=== PATIENT | male | born 1955 | race Caucasian/White ===

== ENCOUNTER 2017-09-02 15:36 | Emergency (ER) | payer OTHER ==
--- OUTSIDE RECORDS SUMMARY | 2017-09-02 17:26 | XMS REPORT ---
:1955 External Reference #:[id number] Author Organization [facility] 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 Arpan Scott DO Primary Care Physician Unavailable Payers Type Date Identification Numbers Payment Provider Subscriber Commercial Policy Number: [id number] [employer] Mahin Bah PayID: [id number] [address] [address] [place] [address] Commercial Expires: 2016 Policy Number: [id number] Rajat Bah PayID: [id number] [address] [address] [place] [address] Problems Date Description Provider Status Onset: 09/07/2011 Sinus node dysfunction Daniel Nelson M.D., Active FACC Onset: 09/07/2011 Cardiac pacemaker in situ Daniel Nelson M.D., Active FACC Onset: 09/07/2011 Electrocardiogram abnormal Daniel Nelson M.D., Active FACC Onset: 08/27/2012 Hyperlipidemia Daniel Nelson M.D., Active FACC Onset: 08/27/2012 Type 2 diabetes mellitus Daniel Nelson M.D., Active FACC Onset: 09/04/2013 Benign essential hypertension Daniel Nelson M.D., Active FACC Onset: 08/06/2015 Essential hypertension Heather Tony Gomez, Active MSN, [employer] Onset: 10/28/2015 Staphylococcal infectious disease aVlery Flores M.D. Active Onset: 10/28/2015 Infected pacemaker Valery Flores M.D. Active Onset: 10/28/2015 Continuous chronic alcoholism Valery Flores M.D. Active Onset: 11/10/2015 Diarrhea Valery Flores M.D. Active Onset: 11/24/2015 Pneumonia Valery Flores M.D. Active Onset: 11/24/2015 Dyspnea Valery Flores M.D. Active Onset: 10/21/2016 Syncope and collapse Daniel Nelson M.D., Active FACC Onset: 02/09/2017 Mature arteriovenous graft Daniel Nelson M.D., Active FACC Family History Date Family Member(s) Problem(s) Comments Father Cancer Prostate Onset: (age 63 Years) Mother Myocardial Infarction Social History Type Date Description Comments Lives With Lulu. They have been for 26 years and wit 2 children btween both of them and 6 grand children. 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 Independent with all ADL's Cigarette Use Former Cigarette Smoker Cigarette Use 04/20/1999 Quit ETOH Use Consumes 1 six pack of beer per day ETOH Use Uses Alcohol Daily Smoking Patient is a former smoker Daily Caffeine Patient consumes minimal amounts of caffeine Allergies, Adverse Reactions, Alerts Date Description Reaction Status Severity Comments 10/08/2008 NKDA active Medications Medication Date Status Form Strength Qnty SIG Indications Ordering Provider Omeprazole / Active Capsules 40mg 1 po qd Unknown 0000 DR Allopurinol / Active Tablets 100mg 30tabs 1 po bid Unknown 0000 Potassium / Active Tablets ER 20Meq take 1 Unknown Chloride ER 0000 tablet by mouth once daily Carvedilol / Active Tablets 12.5mg 1 po bid Unknown 0000 Lisinopril / Active Tablets 20mg 1 po daily Unknown 0000 Ibuprofen / Active Tablets 800mg prn Unknown 0000 Glipizide / Active Tablets 5mg 1 po daily Unknown 0000 Levaquin 11/23/ Hx Tablets 750mg 7tabs 1 by mouth J18.9 Valery 2016 every day Mezu, M.D. for 7 days Mucinex 11/23/ Hx Tablets ER 600mg 20tabs one by mouth J18.9 Valery 2016 12HR twice a day. Guille Flores generic ok. PICC Line 10/27/ Hx Picc line T82.7xxA Valery Insertion Per 2016 insertion Guille Flores Protocol per protocol Daptomycin Hx 6WeekS Infuse T82.7xxA Valery 8MG/KG IV 2016 upply 8mg/kg IV q Guille Flores Every 24 24 hours x 6 Hours weeks Weekly labs: cbc, cmp, crp and cpk while on antibiotics. Rifampin Hx Capsules 300mg 42caps take 2 cap T82.7xxA Valery 2016 by mouth Guille Flores daily Referral For Hx Picc line T82.7xxA Valery PICC Line 2016 care per Guille Flores Care Per protocol. Protocol Home care agency referral. Skilled Hx Evaluation T82.7xxA Valery Nursing 2016 inaddition Guille Flores Evaluation to 3 visits then as needed. Start 10/28/2014 B95.7 Aspirin Ec 08/10/[address] 81mg 30tabs 1 po qd Heather CHINEDU James, [employer] Lovastatin - Hx Tablets 20mg 1 po qd Heather 10/27/2015 CHINEDU James, [employer] Nifedical XL Hx Tablets ER 30mg po qd Heather 24HR CHINEDU James, [employer] [facility] Lisinopril Hx Tablets 40mg 1 po qd Heather Tony Gomez, MSN, [employer] Omeprazole Hx Capsules DR 20mg 1 po qd Heather CHINEDU James, [employer] Ibuprofen Hx Tablets 800mg 3 tab po Heather qd prn Tony Gomez, CHIN[employer], [employer] Aspirin Ec Hx Tablets DR 81mg 1 po qd Heatherdeann Gomez, CHIN[employer]U, [employer] Carvedilol Hx Tablets 6.25mg 180tabs 1 po bid [facility] M.D., [facility] Colchicine Hx Tablets 0.6mg 30tabs 1 po qd Daniel Nelson M.D., [facility] Glipizide Hx Tablets 5mg 1 po qd Unknown Carvedilol Hx Tablets 12.5mg po bid Unknown Glipizide ER Hx Tablets ER 2.5mg 1 po qd Unknown 24HR Folic Acid Hx Tablets 1mg 90tabs 1 po qd Unknown Methotrexate Hx Tablets 2.5mg 3 tabs po Unknown qweek Humira Pen Hx PNKT 40mg/0.8 inject qo Unknown ML week Ibuprofen - Hx Tablets 800mg 1 tablet Unknown 10/28/2015 by tid Acetaminophen Hx Unknown Folic Acid Hx Tablets 1mg take 1 Unknown tablet by mouth once daily Magnesium Hx Capsules 500mg 1 by mouth Unknown daily Vitamin B12 Hx 3000mcg 1 po daily Unknown Immunizations CPT Code Status Date Vaccine Lot # 60432 Given 11/10/2015 Influenza Virus Vaccine Split Virus Use For Individual 3Yr Older Vital Signs Date Vital Result Comment 08/07/2017 BP Systolic Sitting Left Arm 126 mmHg BP Diastolic Sitting Left Arm 70 mmHg Heart Rate 76 /min Respiratory Rate 18 /min Height 70 inches 5'10" Weight 181.00 lb BMI (Body Mass Index) 26.0 kg/m2 BSA (Body Surface Area) 2.00 m2 Bryant body weight in kilograms 75 O2 % BldC Oximetry 97 % Room air 02/09/2017 BP Systolic Sitting Right Arm 130 mmHg BP Diastolic Sitting Right Arm 82 mmHg Heart Rate 79 /min Respiratory Rate 14 /min Height 70 inches 5'10" Weight 185.00 lb BMI (Body Mass Index) 26.5 kg/m2 BSA (Body Surface Area) 2.02 m2 Bryant body weight in kilograms 75 10/21/2016 BP Systolic Sitting Left Arm 98 mmHg BP Diastolic Sitting Left Arm 58 mmHg Heart Rate 70 /min Respiratory Rate 16 /min Height 70 inches 5'10" Weight 182.00 lb BMI (Body Mass Index) 26.1 kg/m2 BSA (Body Surface Area) 2.01 m2 Bryant body weight in kilograms 75 08/12/2016 BP Systolic Sitting Left Arm 112 mmHg BP Diastolic Sitting Left Arm 66 mmHg Heart Rate 73 /min Respiratory Rate 16 /min Height 70 inches 5'10" Weight 178.00 lb BMI (Body Mass Index) 25.5 kg/m2 BSA (Body Surface Area) 1.99 m2 Bryant body weight in kilograms 75 01/28/2016 BP Systolic Sitting Right Arm 110 mmHg BP Diastolic Sitting Right Arm 72 mmHg Heart Rate 76 /min Respiratory Rate 16 /min Height 70 inches 5'10" Weight 170.00 lb BMI (Body Mass Index) 24.4 kg/m2 BSA (Body Surface Area) 1.95 m2 01/18/2016 BP Systolic Sitting Left Arm 133 mmHg BP Diastolic Sitting Left Arm 75 mmHg Body Temperature 97.8 F Heart Rate 88 /min Height 70 inches 5'10" Weight 171.00 lb BMI (Body Mass Index) 24.5 kg/m2 BSA (Body Surface Area) 1.95 m2 O2 % BldC Oximetry 97 % ra 12/24/2015 BP Systolic Sitting Left Arm 122 mmHg BP Diastolic Sitting Left Arm 64 mmHg Heart Rate 88 /min Respiratory Rate 12 /min Height 70 inches 5'10" Weight 166.00 lb BMI (Body Mass Index) 23.8 kg/m2 BSA (Body Surface Area) 1.93 m2 12/21/2015 BP Systolic Sitting Right Arm 103 mmHg Machine BP Diastolic Sitting Right Arm 69 mmHg Machine Body Temperature 99.1 F Heart Rate 95 /min Height 70 inches 5'10" Weight 165.00 lb BMI (Body Mass Index) 23.7 kg/m2 BSA (Body Surface Area) 1.92 m2 O2 % BldC Oximetry 97 % Ra 11/24/2015 BP Systolic Sitting Right Arm 124 mmHg BP Diastolic Sitting Right Arm 70 mmHg Body Temperature 99.0 F Heart Rate 96 /min Height 70 inches 5'10" Weight 170.00 lb BMI (Body Mass Index) 24.4 kg/m2 BSA (Body Surface Area) 1.95 m2 O2 % BldC Oximetry 95 % ra 11/09/2015 BP Systolic 122 mmHg BP Diastolic 68 mmHg Heart Rate 86 /min Height 70 inches 5'10" Weight 176.00 lb BMI (Body Mass Index) 25.3 kg/m2 BSA (Body Surface Area) 1.98 m2 O2 % BldC Oximetry 96 % ra 10/28/2015 BP Systolic Sitting Right Arm 128 mmHg BP Diastolic Sitting Right Arm 78 mmHg Body Temperature 97.7 F Heart Rate 66 /min Weight 177.00 lb O2 % BldC Oximetry 97 % ra 09/24/2015 BP Systolic Sitting Left Arm 110 mmHg BP Diastolic Sitting Left Arm 70 mmHg Body Temperature 97.7 F Heart Rate 75 /min Height 70 inches 5'10" Weight 178.00 lb BMI (Body Mass Index) 25.5 kg/m2 BSA (Body Surface Area) 1.99 m2 Bryant body weight in kilograms 75 08/06/2015 BP Systolic Sitting Right Arm 128 mmHg BP Diastolic Sitting Right Arm 80 mmHg Heart Rate 61 /min Height 70 inches 5'10" Weight 178.00 lb BMI (Body Mass Index) 25.5 kg/m2 BSA (Body Surface Area) 1.99 m2 Bryant body weight in kilograms 75 09/18/2014 BP Systolic Sitting Right Arm 130 mmHg BP Diastolic Sitting Right Arm 80 mmHg Heart Rate 70 /min Respiratory Rate 16 /min Height 70 inches 5'10" Weight 178.00 lb BMI (Body Mass Index) 25.5 kg/m2 BSA (Body Surface Area) 1.99 m2 09/04/2013 BP Systolic Sitting Left Arm 108 mmHg BP Diastolic Sitting Left Arm 58 mmHg Heart Rate 76 /min Respiratory Rate 16 /min Height 70 inches 5'10" Weight 164.00 lb BMI (Body Mass Index) 23.5 kg/m2 BSA (Body Surface Area) 1.92 m2 08/27/2012 BP Systolic Sitting Right Arm 124 mmHg BP Diastolic Sitting Right Arm 60 mmHg Heart Rate 76 /min Respiratory Rate 16 /min Height 70 inches 5'10" Weight 184.00 lb BMI (Body Mass Index) 26.4 kg/m2 BSA (Body Surface Area) 2.01 m2 09/07/2011 BP Systolic Sitting Left Arm 126 mmHg BP Diastolic Sitting Left Arm 72 mmHg Heart Rate 66 /min Respiratory Rate 14 /min Height 70 inches 5'10" Weight 179.00 lb BMI (Body Mass Index) 25.7 kg/m2 08/10/2010 BP Systolic Sitting Right Arm 116 mmHg BP Diastolic Sitting Right Arm 64 mmHg Heart Rate 74 /min Regular Respiratory Rate 12 /min Height 70 inches 5'10" Weight 187.00 lb BMI (Body Mass Index) 26.8 kg/m2 07/30/2009 Heart Rate 76 /min Respiratory Rate 16 /min Weight 190.00 lb 10/08/2008 Heart Rate 74 /min Regular Respiratory Rate 16 /min Weight 187.00 lb Results Test Date Test Result H/L Range Note Serum sodium 01/27/2017 Serum sodium 135 Low 136-145 measurement measurement Serum or plasma urea 01/27/2017 Serum or plasma urea 12 7-18 nitrogen measurement nitrogen measurement (mass/vo (mass/volume) Serum or plasma glucose 01/27/2017 Serum or plasma 166 High 74-106 measurement glucose measurement (mass/volume) (mass/volume) Serum or plasma 01/27/2017 Serum or plasma 1.4 High 0.6-1.3 creatinine measurement creatinine measurement (mass/volum (mass/volume) Serum or plasma calcium 01/27/2017 Serum or plasma 8.6 8.5-10.1 measurement calcium measurement (mass/volume) (mass/volume) Serum carbon dioxide 01/27/2017 Serum carbon dioxide 27 21-32 measurement measurement Potassium SerPl-sCnc 01/27/2017 Potassium SerPl-sCnc 4.7 3.5-5.1 GFR/Bsa pred.non black 01/27/2017 GFR/Bsa pred.non black 54 >60 SerPl MDRD-ArVRat SerPl MDRD-ArVRat Chloride SerPl-sCnc 01/27/2017 Chloride SerPl-sCnc 103 98-107 BUN/Creat SerPl 01/27/2017 BUN/Creat SerPl 8.5 Anion Gap SerPl-sCnc 01/27/2017 Anion Gap SerPl-sCnc 5 Low 8-16 Basic Metabolic Panel 01/27/2017 Glucose 166 mg/dL High 74-106 1 BUN 12 mg/dL 7-18 1 Creatinine 1.4 mg/dL High 0.6-1.3 1 Glom Filtration Rate, Estimate 54 mL/min >60 1 If >60 mL/min >60 1, 2 BUN/Creat 8.5 ratio 1 Sodium 135 mmol/L Low 136-145 1 Potassium 4.7 mmol/L 3.5-5.1 1 Chloride 103 mmol/L 98-107 1 Carbon Dioxide 27 mmol/L 21-32 1 Anion Gap 5 mEq/L Low 8-16 1 Calcium 8.6 mg/dL 8.5-10.1 1 Capillary blood glucose 01/27/2017 Capillary blood glucose 177 High 70- 110 measurement by measurement by glucometer glucometer (mass/volume) Blood hemoglobin 01/26/2017 Blood hemoglobin 12.0 Low 12.8-17.0 measurement measurement (mass/volume) (mass/volume) Blood monocytes 01/26/2017 Blood monocytes automated 0.57 0.0-0.8 automated count count (number/volume) (number/volume) Eosinophil/leuk NFr Bld 01/26/2017 Eosinophil/leuk NFr Bld 6.5 0.0-6.6 Auto Auto Lymphocytes/leuk NFr 01/26/2017 Lymphocytes/leuk NFr Bld 18.6 Low 20.0- 42.0 Bld Auto Auto Monocytes/leuk NFr Bld 01/26/2017 Monocytes/leuk NFr Bld 11.5 High 0.0- 10.0 Auto Auto Neutrophils # Bld Auto 01/26/2017 Neutrophils # Bld Auto 3.10 1.8-7.0 Neutrophils/leuk NFr 01/26/2017 Neutrophils/leuk NFr Bld 62.6 33.0-73.0 Bld Auto Auto RDW RBC Auto 01/26/2017 RDW RBC Auto 46.1 36-51 RDW RBC Auto-Rto 01/26/2017 RDW RBC Auto-Rto 13.0 11.6-15.8 WBC # Bld Auto 01/26/2017 WBC # Bld Auto 5.0 3.4-10.5 CBS W/Automated Diff 01/26/2017 White Blood Count 5.0 K/uL 3.4-10.5 3 Red Blood Count 3.47 M/uL Low 4.20-5.80 3 Hemoglobin 12.0 gm/dL Low 12.8-17.0 3 Hematocrit 35.0 % Low 38.0-48.0 3 Mean Cell Volume 100.9 fl High 80.0-96.0 3 Mean Corpuscular HGB 34.6 pg High 27.0-33.0 3 Mean Corpuscular HGB Conc 34.3 g/dL 31.7-36.0 3 Platelet Count 86 K/uL Low 155-360 3, 4 Red Cell Distri Width SD 46.1 fl 36-51 3 Red Cell Distri Width %CV 13.0 % 11.6-15.8 3 Mean Platelet Volume 9.5 fL 6.6-10.6 3 Neut% 62.6 % 33.0-73.0 3 Lymph % 18.6 % Low 20.0-42.0 3 [place] % 11.5 % High 0.0-10.0 3 Eo% 6.5 % 0.0-6.6 3 Bas% 0.8 % 0.0-1.1 3 Neut# 3.10 K/uL 1.8-7.0 3 Lymph # 0.92 K/uL Low 1.0-4.0 3 [place] # 0.57 K/uL 0.0-0.8 3 Eos # 0.32 K/uL 0.0-0.5 3 Baso # 0.04 K/uL 0.0-0.1 3 Basic Metabolic Panel 01/26/2017 Glucose 133 mg/dL High 74-106 3 BUN 10 mg/dL 7-18 3 Creatinine 1.2 mg/dL 0.6-1.3 3 Glom Filtration Rate, Estimate >60 mL/min >60 3 If >60 mL/min >60 3, 5 BUN/Creat 8.3 ratio 3 Sodium 136 mmol/L 136-145 3 Potassium 4.1 mmol/L 3.5-5.1 3 Chloride 105 mmol/L 98-107 3 Carbon Dioxide 23 mmol/L 21-32 3 Anion Gap 8 mEq/L 8-16 3 Calcium 8.5 mg/dL 8.5-10.1 3 Automated blood basophil 01/26/2017 Automated blood 0.04 0.0-0.1 count (count/volume) basophil count (count/volume) Automated blood 01/26/2017 Automated blood 0.32 0.0-0.5 eosinophil count eosinophil count Automated blood 01/26/2017 Automated blood 35.0 Low 38.0-48.0 hematocrit (volume hematocrit (volume fraction) fraction) Automated blood 01/26/2017 Automated blood 0.92 Low 1.0-4.0 lymphocyte count lymphocyte count (number/volume) (number/volume) Automated blood platelet 01/26/2017 Automated blood 86 Low 155-360 count platelet count Automated blood platelet 01/26/2017 Automated blood 9.5 6.6-10.6 mean volume measurement platelet mean volume measurement Automated erythrocyte 01/26/2017 Automated erythrocyte 34.6 High 27.0- 33.0 mean corpuscular mean corpuscular hemoglobin hemoglobin (mass per erythrocyte) Automated erythrocyte 01/26/2017 Automated erythrocyte 34.3 31.7-36.0 mean corpuscular mean corpuscular hemoglobin hemoglobin concentration measurement (mass/volume) Automated erythrocyte 01/26/2017 Automated erythrocyte 100.9 High 80.0- 96.0 mean corpuscular volume mean corpuscular volume Basophils/leuk NFr Bld 01/26/2017 Basophils/leuk NFr Bld 0.8 0.0-1.1 Auto Auto Blood erythrocytes 01/26/2017 Blood erythrocytes 3.47 Low 4.20-5.80 automated count automated count (number/volume) (number/volume) Unloinc 01/25/2017 Unloinc . Serum or plasma total 01/25/2017 Serum or plasma total 1.0 0.2-1.0 bilirubin measurement bilirubin measurement (mass/ (mass/volume) Serum or plasma protein 01/25/2017 Serum or plasma protein 8.1 6.4-8.2 measurement measurement (mass/volume) (mass/volume) Serum or plasma ethanol 01/25/2017 Serum or plasma ethanol 4.0 measurement measurement (mass/volume) (mass/volume) Serum or plasma creatine 01/25/2017 Serum or plasma 273 39-308 kinase measurement creatine kinase (enzym measurement (enzymatic activity/volume) Serum or plasma 01/25/2017 Serum or plasma 55 High 15-37 aspartate aspartate aminotransferase measure aminotransferase measurement (enzymatic activity/volume) Serum or plasma alkaline 01/25/2017 Serum or plasma 94 45-117 phosphatase measurement alkaline phosphatase ( measurement (enzymatic activity/volume) Serum or plasma albumin 01/25/2017 Serum or plasma albumin 3.6 3.4-5.0 measurement measurement (mass/volume) (mass/volume) Prothrombin time (PT) in 01/25/2017 Prothrombin time (PT) 14.3 12.0-14.4 platelet poor plasma in platelet poor plasma Platelet poor plasma 01/25/2017 Platelet poor plasma 1.1 international normalized international rati normalized ratio (Inr) by coagulation assay (relative time) Globulin Ser Calc-mCnc 01/25/2017 Globulin Ser Calc-mCnc 4.5 High 1.9-4.3 Albumin/Glob SerPl 01/25/2017 Albumin/Glob SerPl 0.8 Activated partial 01/25/2017 Activated partial 27.3 23.4-35.0 thromboplastin time thromboplastin time (aPTT) in pl (aPTT) in platelet poor plasma by coagulation assay Alt SerPl-cCnc 01/25/2017 Alt SerPl-cCnc 43 12-78 Lymphocytes [#/volume] 09/08/2016 Lymphocytes [#/volume] 1.19 1.0-4.0 in Blood by Automated in Blood by Automated count count Lymphocytes/leuk NFr Bld 09/08/2016 Lymphocytes/leuk NFr 16.1 Low 20.0- 42.0 Auto Bld Auto MCH RBC Qn Auto 09/08/2016 MCH RBC Qn Auto 34.1 High 27.0-33.0 MCHC RBC Auto-mCnc 09/08/2016 MCHC RBC Auto-mCnc 34.6 31.7-36.0 MCV RBC Auto 09/08/2016 MCV RBC Auto 98.6 High 80.0-96.0 Monocytes # Bld Auto 09/08/2016 Monocytes # Bld Auto 0.68 0.0-0.8 Monocytes/leuk NFr Bld 09/08/2016 Monocytes/leuk NFr Bld 9.2 0.0-10.0 Auto Auto Neutrophils # Bld Auto 09/08/2016 Neutrophils # Bld Auto 5.14 1.8-7.0 Neutrophils/leuk NFr Bld 09/08/2016 Neutrophils/leuk NFr 69.6 33.0-73.0 Auto Bld Auto PMV Bld Auto 09/08/2016 PMV Bld Auto 9.8 6.6-10.6 Platelets [#/volume] in 09/08/2016 Platelets [#/volume] in 89 Low 150-400 Blood by Automated count Blood by Automated count Potassium SerPl-sCnc 09/08/2016 Potassium SerPl-sCnc 4.0 3.5-5.1 Prot SerPl-mCnc 09/08/2016 Prot SerPl-mCnc 7.0 6.4-8.2 RBC # Bld Auto 09/08/2016 RBC # Bld Auto 3.69 Low 4.20-5.80 RDW RBC Auto 09/08/2016 RDW RBC Auto 44.3 36-51 RDW RBC Auto-Rto 09/08/2016 RDW RBC Auto-Rto 12.8 11.6-15.8 Sodium SerPl-sCnc 09/08/2016 Sodium SerPl-sCnc 142 136-145 WBC # Bld Auto 09/08/2016 WBC # Bld Auto 7.4 3.4-10.5 Albumin SerPl-mCnc 09/08/2016 Albumin SerPl-mCnc 3.2 Low 3.4-5.0 Alt SerPl-cCnc 09/08/2016 Alt SerPl-cCnc 44 12-78 Alp SerPl-cCnc 09/08/2016 Alp SerPl-cCnc 73 45-117 Comprehensive Metabolic 09/08/2016 Glucose 123 mg/dL High 74-106 3 Panel BUN 13 mg/dL 7-18 3 Creatinine 1.3 mg/dL 0.6-1.3 3 Glom Filtration Rate, Estimate 59 mL/min >60 3 If >60 mL/min >60 3, 6 BUN/Creat 10.0 ratio 3 Sodium 142 mmol/L 136-145 3 Potassium 4.0 mmol/L 3.5-5.1 3 Chloride 107 mmol/L 98-107 3 Carbon Dioxide 23 mmol/L 21-32 3 Anion Gap 12 mEq/L 8-16 3 Calcium 8.7 mg/dL 8.5-10.1 3 Total Protein 7.0 g/dL 6.4-8.2 3 Albumin 3.2 g/dL Low 3.4-5.0 3 Globulin 3.8 g/dL 1.9-4.3 3 Alb/Glob 0.8 ratio 3 Bilirubin,Total 0.7 mg/dL 0.2-1.0 3 Sgot/Ast 37 U/L 15-37 3 SGPT/Alt 44 U/L 12-78 3 Alkaline Phosphatase 73 U/L 45-117 3 CBS W/Automated Diff 09/08/2016 White Blood Count 7.4 K/uL 3.4-10.5 3 Red Blood Count 3.69 M/uL Low 4.20-5.80 3 Hemoglobin 12.6 gm/dL Low 12.8-17.0 3 Hematocrit 36.4 % Low 38.0-48.0 3 Mean Cell Volume 98.6 fl High 80.0-96.0 3 Mean Corpuscular HGB 34.1 pg High 27.0-33.0 3 Mean Corpuscular HGB Conc 34.6 g/dL 31.7-36.0 3 Platelet Count 89 K/uL Low 150-400 3 Red Cell Distri Width SD 44.3 fl 36-51 3 Red Cell Distri Width %CV 12.8 % 11.6-15.8 3 Mean Platelet Volume 9.8 fL 6.6-10.6 3 Neut% 69.6 % 33.0-73.0 3 Lymph % 16.1 % Low 20.0-42.0 3 [place] % 9.2 % 0.0-10.0 3 Eo% 4.6 % 0.0-6.6 3 Bas% 0.5 % 0.0-1.1 3 Neut# 5.14 K/uL 1.8-7.0 3 Lymph # 1.19 K/uL 1.0-4.0 3 [place] # 0.68 K/uL 0.0-0.8 3 Eos # 0.34 K/uL 0.0-0.5 3 Baso # 0.04 K/uL 0.0-0.1 3 Albumin/Glob SerPl 09/08/2016 Albumin/Glob SerPl 0.8 Anion Gap SerPl-sCnc 09/08/2016 Anion Gap SerPl-sCnc 12 8-16 Aspartate 09/08/2016 Aspartate 37 15-37 aminotransferase aminotransferase [Enzymatic [Enzymatic activity/vol activity/volume] in Serum or Plasma BUN SerPl-mCnc 09/08/2016 BUN SerPl-mCnc 13 7-18 BUN/Creat SerPl 09/08/2016 BUN/Creat SerPl 10.0 Basophils [#/volume] 09/08/2016 Basophils [#/volume] 0.04 0.0-0 in Blood by Automated in Blood by Automated .1 count count Basophils/leuk NFr Bld 09/08/2016 Basophils/leuk NFr 0.5 0.0-1 Auto Bld Auto .1 Hgb Bld-mCnc 09/08/2016 Hgb Bld-mCnc 12.6 Low 12.8- 17.0 Hct VFr Bld Auto 09/08/2016 Hct VFr Bld Auto 36.4 Low 38.0- 48.0 Glucose [Mass/volume] 09/08/2016 Glucose [Mass/volume] 123 High 74-10 in Serum or Plasma in Serum or Plasma 6 Globulin Ser Calc-mCnc 09/08/2016 Globulin Ser 3.8 1.9-4 Calc-mCnc .3 GFR/Bsa pred.non black 09/08/2016 GFR/Bsa pred.non 59 >60 SerPl MDRD-ArVRat black SerPl MDRD-ArVRat Eosinophil/leuk NFr 09/08/2016 Eosinophil/leuk NFr 4.6 0.0-6 Bld Auto Bld Auto .6 Eosinophil # Bld Auto 09/08/2016 Eosinophil # Bld Auto 0.34 0.0-0 .5 Creat SerPl-mCnc 09/08/2016 Creat SerPl-mCnc 1.3 0.6-1 .3 Chloride SerPl-sCnc 09/08/2016 Chloride SerPl-sCnc 107 98-10 7 Calcium SerPl-mCnc 09/08/2016 Calcium SerPl-mCnc 8.7 8.5-1 0.1 Co2 SerPl-sCnc 09/08/2016 Co2 SerPl-sCnc 23 21-32 Bilirub SerPl-mCnc 09/08/2016 Bilirub SerPl-mCnc 0.7 0.2-1 .0 Unloinc 09/07/2016 Unloinc See Note 7 Serum or plasma 09/07/2016 Serum or plasma 103 39-30 creatine kinase creatine kinase 8 measurement (enzym measurement (enzymatic activity/volume) Legionella Culture 09/07/2016 Legionella Culture REFERENCE 8, 9 LAB#: Blood Culture 09/07/2016 Blood Culture Aerobic NO GROWTH: 10, 11 FINAL <SEE NOTE> Blood Culture Anaerobic NO GROWTH: FINAL <SEE NOTE> 10, 12 Blood Culture 09/07/2016 Blood Culture Aerobic NO GROWTH: FINAL <SEE NOTE> 10, 13 Blood Culture Anaerobic NO GROWTH: FINAL <SEE NOTE> 10, 14 Bacteria Bld Aerobe 09/07/2016 Bacteria Bld Aerobe No Growth Cult Cult Anaerobic blood 09/07/2016 Anaerobic blood No Growth culture culture Prot Ur 09/07/2016 Prot Ur Negative Negative Strip.auto-mCnc Strip.auto-mCnc Nitrite Ur Ql 09/07/2016 Nitrite Ur Ql Negative Negative Strip.auto Strip.auto Leukocyte esterase 09/07/2016 Leukocyte esterase Negative Negative Ur Ql Strip.auto Ur Ql Strip.auto Ketones Ur 09/07/2016 Ketones Ur Negative Negative Strip.auto-mCnc Strip.auto-mCnc Color Ur 09/07/2016 Color Ur Yellow Yellow Bilirub Ur Ql 09/07/2016 Bilirub Ur Ql Negative Negative Strip.auto Strip.auto Laboratory test 09/07/2016 Legionella Negative Negative 10, 15 finding Antigen,Urine pH Ur Strip.auto 09/07/2016 pH Ur Strip.auto 6.0 Low 6.5-7.5 Urobilinogen Ur 09/07/2016 Urobilinogen Ur 0.2 0.2-1.0 Strip-aCnc Strip-aCnc Urine hemoglobin 09/07/2016 Urine hemoglobin Negative Negative detection by detection by automated test strip automated test strip Urine glucose 09/07/2016 Urine glucose Negative Negative measurement by measurement by automated test strip automated test strip (mass/volume) Urine appearance 09/07/2016 Urine appearance Clear Clear determination determination Specific gravity of 09/07/2016 Specific gravity of 1.010 1.010-1.030 Urine by Automated Urine by Automated test strip test strip Comprehensive 01/18/2016 Glucose 201 mg/dL High 74-106 16 Metabolic Panel BUN 10 mg/dL 7-18 16 Creatinine 1.2 mg/dL 0.6-1.3 16 Glom Filtration Rate, Estimate >60 mL/min >60 16 If >60 mL/min >60 16, 17 BUN/Creat 8.3 ratio 16 Sodium 139 mmol/L 136-145 16 Potassium 4.1 mmol/L 3.5-5.1 16 Chloride 108 mmol/L High 98-107 16 Carbon Dioxide 24 mmol/L 21-32 16 Anion Gap 7 mEq/L Low 8-16 16 Calcium 8.6 mg/dL 8.5-10.1 16 Total Protein 7.5 g/dL 6.4-8.2 16 Albumin 3.4 g/dL 3.4-5.0 16 Globulin 4.1 g/dL 1.9-4.3 16 Alb/Glob 0.8 ratio 16 Bilirubin,Total 0.4 mg/dL 0.2-1.0 16 Sgot/Ast 21 U/L 15-37 16 SGPT/Alt 18 U/L 12-78 16 Alkaline Phosphatase 115 U/L 45-117 16 Laboratory test finding 01/18/2016 C-Reactive Protein,Cardiac 4.25 mg/L < 3.0 16 CBS W/Automated Diff 01/18/2016 White Blood Count 6.8 K/uL 3.4-10.5 16 Red Blood Count 3.92 M/uL Low 4.20-5.80 16 Hemoglobin 13.0 gm/dL 12.8-17.0 16 Hematocrit 38.2 % 38.0-48.0 16 Mean Cell Volume 97.4 fl High 80.0-96.0 16 Mean Corpuscular HGB 33.2 pg High 27.0-33.0 16 Mean Corpuscular HGB Conc 34.0 g/dL 31.7-36.0 16 Platelet Count 121 K/uL Low 150-400 16 Red Cell Distri Width SD 48.2 fl 36-51 16 Red Cell Distri Width %CV 13.9 % 11.6-15.8 16 Mean Platelet Volume 9.6 fL 6.6-10.6 16 Neut% 64.6 % 33.0-73.0 16 Lymph % 17.5 % 17.0-56.0 16 [place] % 9.8 % 0.0-10.0 16 Eo% 6.5 % High 0.0-5.0 16 Bas% 1.6 % High 0.1-1.0 16 Neut# 4.36 K/uL 1.8-7.0 16 Lymph # 1.18 K/uL Low 1.8-7.0 16 [place] # 0.66 K/uL 0.0-0.8 16 Eos # 0.44 K/uL 0.0-0.5 16 Baso # 0.11 K/uL 0.1-0.2 16 Laboratory test 12/23/2015 C-Reactive <pending> 18 finding Protein,Cardiac Blood Culture 12/23/2015 Blood Culture Aerobic NO GROWTH: FINAL 18, 19 <SEE NOTE> Blood Culture Anaerobic NO GROWTH: FINAL <SEE NOTE> 18, 20 Laboratory test finding 12/09/2015 C-Reactive 11.8 mg/L High <3.0 21, 22 Protein,Quant Comprehensive Metabolic 12/09/2015 Glucose 214 mg/dL High 74-106 21 Panel BUN 8 mg/dL 7-18 21 Creatinine 1.2 mg/dL 0.6-1.3 21 Glom Filtration Rate, Estimate >60 mL/min >60 21 If >60 mL/min >60 21, 23 BUN/Creat 6.6 ratio 21 Sodium 136 mmol/L 136-145 21 Potassium 3.8 mmol/L 3.5-5.1 21 Chloride 102 mmol/L 98-107 21 Carbon Dioxide 24 mmol/L 21-32 21 Anion Gap 10 mEq/L 8-16 21 Calcium 8.8 mg/dL 8.5-10.1 21 Total Protein 6.8 g/dL 6.4-8.2 21 Albumin 2.9 g/dL Low 3.4-5.0 21 Globulin 3.9 g/dL 1.9-4.3 21 Alb/Glob 0.7 ratio 21 Bilirubin,Total 0.3 mg/dL 0.2-1.0 21 Sgot/Ast 21 U/L 15-37 21 SGPT/Alt 19 U/L 12-78 21 Alkaline Phosphatase 114 U/L 45-117 21 CBS W/Automated Diff 12/09/2015 White Blood Count 6.0 K/uL 3.4-10.5 21 Red Blood Count 3.72 M/uL Low 4.20-5.80 21 Hemoglobin 12.0 gm/dL Low 12.8-17.0 21 Hematocrit 35.8 % Low 38.0-48.0 21 Mean Cell Volume 96.2 fl High 80.0-96.0 21 Mean Corpuscular HGB 32.3 pg 27.0-33.0 21 Mean Corpuscular HGB Conc 33.5 g/dL 31.7-36.0 21 Platelet Count 131 K/uL Low 150-400 21 Red Cell Distri Width SD 44.9 fl 36-51 21 Red Cell Distri Width %CV 13.3 % 11.6-15.8 21 Mean Platelet Volume 10.6 fL 6.6-10.6 21 Neut% 58.6 % 33.0-73.0 21 Lymph % 21.8 % 17.0-56.0 21 [place] % 6.7 % 0.0-10.0 21 Eo% 10.7 % High 0.0-5.0 21 Bas% 2.2 % High 0.1-1.0 21 Neut# 3.50 K/uL 1.8-7.0 21 Lymph # 1.30 K/uL Low 1.8-7.0 21 [place] # 0.40 K/uL 0.0-0.8 21 Eos # 0.64 K/uL High 0.0-0.5 21 Baso # 0.13 K/uL 0.1-0.2 21 Laboratory test finding 12/02/2015 Slide Review . 21, 24 CBS W/Automated Diff 12/02/2015 White Blood Count 5.7 K/uL 3.4-10.5 21 Red Blood Count 5.67 M/uL 4.20-5.80 21 Hemoglobin 17.8 gm/dL High 12.8-17.0 21 Hematocrit 52.5 % High 38.0-48.0 21 Mean Cell Volume 92.6 fl 80.0-96.0 21 Mean Corpuscular HGB 31.4 pg 27.0-33.0 21 Mean Corpuscular HGB Conc 33.9 g/dL 31.7-36.0 21 Platelet Count 172 K/uL 150-400 21 Red Cell Distri Width SD 45.9 fl 36-51 21 Red Cell Distri Width %CV 13.6 % 11.6-15.8 21 Mean Platelet Volume 9.3 fL 6.6-10.6 21 Neut% 69.5 % 33.0-73.0 21 Lymph % 12.3 % Low 17.0-56.0 21 [place] % 8.6 % 0.0-10.0 21 Eo% 8.5 % High 0.0-5.0 21 Bas% 1.1 % High 0.1-1.0 21 Neut# 3.95 K/uL 1.8-7.0 21 Lymph # 0.70 K/uL Low 1.8-7.0 21 [place] # 0.49 K/uL 0.0-0.8 21 Eos # 0.48 K/uL 0.0-0.5 21 Baso # 0.06 K/uL Low 0.1-0.2 21 C-Reactive Protein,Quant 12/02/2015 C-Reactive Protein,Quant 43.4 mg/L High <3.0 21 Is Patient Fasting? Unknown 21 Comprehensive Metabolic Panel 12/02/2015 Glucose 124 mg/dL High 74-106 21 BUN 16 mg/dL 7-18 21 Creatinine 1.4 mg/dL High 0.6-1.3 21 Glom Filtration Rate, Estimate 55 mL/min >60 21 If >60 mL/min >60 21, 25 BUN/Creat 11.4 ratio 21 Sodium 135 mmol/L Low 136-145 21 Potassium 3.9 mmol/L 3.5-5.1 21 Chloride 99 mmol/L 98-107 21 Carbon Dioxide 23 mmol/L 21-32 21 Anion Gap 13 mEq/L 8-16 21 Calcium 8.7 mg/dL 8.5-10.1 21 Total Protein 7.0 g/dL 6.4-8.2 21 Albumin 2.4 g/dL Low 3.4-5.0 21 Globulin 4.6 g/dL High 1.9-4.3 21 Alb/Glob 0.5 ratio 21 Bilirubin,Total 0.4 mg/dL 0.2-1.0 21 Sgot/Ast 65 U/L High 15-37 21 SGPT/Alt 38 U/L 12-78 21 Alkaline Phosphatase 112 U/L 45-117 21 Is Patient Fasting? Unknown 21 Basic Metabolic Panel 12/01/2015 Glucose 123 mg/dL High 74-106 26 BUN 16 mg/dL 7-18 26 Creatinine 1.0 mg/dL 0.6-1.3 26 Glom Filtration Rate, Estimate >60 mL/min >60 26 If >60 mL/min >60 26, 27 BUN/Creat 16.0 ratio 26 Sodium 132 mmol/L Low 136-145 26 Potassium 3.9 mmol/L 3.5-5.1 26 Chloride 100 mmol/L 98-107 26 Carbon Dioxide 23 mmol/L 21-32 26 Anion Gap 9 mEq/L 8-16 26 Calcium 8.8 mg/dL 8.5-10.1 26 Is Patient Fasting? Non-Fasting 26 Laboratory test finding 12/01/2015 Glucose,Bedside 112 mg/dL High 70-110 26, 28 Continuous Oximetry 12/01/2015 Oximetry 86 % Low 93-98 26 Fio2 21 21-100 26 Heart Rate 80 BPM 26 Patient Status RESTING 26 Patient Position SITTING UP IN BE <SEE NOTE> 26, 29 Continuous Oximetry 12/01/2015 Oximetry 93 % 93-98 26 O2l/Min 2 L/min 26 Oximetry Delivery N/C 26 Heart Rate 78 BPM 26 Patient Status RESTING 26 Patient Position SITTING UP IN BE <SEE NOTE> 26, 30 Laboratory test finding 12/01/2015 Glucose,Bedside 146 mg/dL High 70-110 26, 31 Aot Request 11/30/2015 Aot Request TEST ORDERED 26, 32 Tests to be added: crp 26 Laboratory test 11/30/2015 C-Reactive 87.5 mg/L High <3.0 26 finding Protein,Quant Laboratory test 11/30/2015 Glucose,Bedside 187 mg/dL High 70-110 26 finding Laboratory test 11/30/2015 Glucose,Bedside 127 mg/dL High 70-110 26, 33 finding Laboratory test 11/30/2015 Glucose,Bedside 131 mg/dL High 70-110 26, 34 finding Laboratory test 11/30/2015 Glucose,Bedside 119 mg/dL High 70-110 26, 35 finding Laboratory test 11/29/2015 C. Difficile Toxin NEGATIVE FOR C. 26, 36 finding A/B <SEE NOTE> Laboratory test 11/29/2015 Glucose,Bedside 156 mg/dL High 70-110 26, 37 finding Laboratory test 11/29/2015 Glucose,Bedside 117 mg/dL High 70-110 26, 38 finding Laboratory test 11/29/2015 Glucose,Bedside 136 mg/dL High 70-110 26, 39 finding Laboratory test 11/29/2015 Glucose,Bedside 119 mg/dL High 70-110 26, 40 finding CBC 11/29/2015 White Blood Count 9.2 K/uL 3.4-10.5 26 Red Blood Count 2.97 M/uL Low 4.20-5.80 26 Hemoglobin 9.7 gm/dL Low 12.8-17.0 26 Hematocrit 28.3 % Low 38.0-48.0 26 Mean Cell Volume 95.3 fl 80.0-96.0 26 Mean Corpuscular HGB 32.7 pg 27.0-33.0 26 Mean Corpuscular HGB Conc 34.3 g/dL 31.7-36.0 26 Platelet Count 281 K/uL 150-400 26 Red Cell Distri Width %CV 12.6 % 11.6-15.8 26 Mean Platelet Volume 8.6 fL 6.6-10.6 26 Basic Metabolic Panel 11/29/2015 Glucose 173 mg/dL High 74-106 26 BUN 19 mg/dL High 7-18 26 Creatinine 0.8 mg/dL 0.6-1.3 26 Glom Filtration Rate, Estimate >60 mL/min >60 26 If >60 mL/min >60 26, 41 BUN/Creat 23.7 ratio 26 Sodium 133 mmol/L Low 136-145 26 Potassium 3.5 mmol/L 3.5-5.1 26 Chloride 103 mmol/L 98-107 26 Carbon Dioxide 22 mmol/L 21-32 26 Anion Gap 8 mEq/L 8-16 26 Calcium 7.8 mg/dL Low 8.5-10.1 26 Is Patient Fasting? Non-Fasting 26 Magnesium 11/29/2015 Magnesium 1.5 mg/dL Low 1.8-2.4 26 Is Patient Fasting? Non-Fasting 26 Laboratory test finding 11/28/2015 Glucose,Bedside 153 mg/dL High 70-110 26, 42 Laboratory test finding 11/28/2015 Glucose,Bedside 105 mg/dL 70-110 26, 43 Laboratory test finding 11/28/2015 Glucose,Bedside 181 mg/dL High 70-110 26, 44 Laboratory test finding 11/28/2015 Glucose,Bedside 118 mg/dL High 70-110 26, 45 CBC 11/28/2015 White Blood Count 10.8 K/uL High 3.4-10.5 26 Red Blood Count 3.36 M/uL Low 4.20-5.80 26 Hemoglobin 10.8 gm/dL Low 12.8-17.0 26 Hematocrit 31.8 % Low 38.0-48.0 26 Mean Cell Volume 94.6 fl 80.0-96.0 26 Mean Corpuscular HGB 32.1 pg 27.0-33.0 26 Mean Corpuscular HGB Conc 34.0 g/dL 31.7-36.0 26 Platelet Count 279 K/uL 150-400 26 Red Cell Distri Width %CV 12.7 % 11.6-15.8 26 Mean Platelet Volume 8.4 fL 6.6-10.6 26 Basic Metabolic Panel 11/28/2015 Glucose 116 mg/dL High 74-106 26 BUN 21 mg/dL High 7-18 26 Creatinine 1.0 mg/dL 0.6-1.3 26 Glom Filtration Rate, Estimate >60 mL/min >60 26 If >60 mL/min >60 26, 46 BUN/Creat 21.0 ratio 26 Sodium 132 mmol/L Low 136-145 26 Potassium 3.8 mmol/L 3.5-5.1 26 Chloride 100 mmol/L 98-107 26 Carbon Dioxide 23 mmol/L 21-32 26 Anion Gap 9 mEq/L 8-16 26 Calcium 8.4 mg/dL Low 8.5-10.1 26 Is Patient Fasting? Non-Fasting 26 Magnesium 11/28/2015 Magnesium 1.6 mg/dL Low 1.8-2.4 26 Is Patient Fasting? Non-Fasting 26 Laboratory test finding 11/27/2015 Glucose,Bedside 152 mg/dL High 70-110 26 Laboratory test finding 11/27/2015 Glucose,Bedside 115 mg/dL High 70-110 26, 47 Laboratory test finding 11/27/2015 Glucose,Bedside 144 mg/dL High 70-110 26, 48 Laboratory test finding 11/27/2015 Glucose,Bedside 145 mg/dL High 70-110 26, 49 CBC 11/27/2015 White Blood Count 13.9 K/uL High 3.4-10.5 26 Red Blood Count 3.40 M/uL Low 4.20-5.80 26 Hemoglobin 11.1 gm/dL Low 12.8-17.0 26 Hematocrit 32.1 % Low 38.0-48.0 26 Mean Cell Volume 94.4 fl 80.0-96.0 26 Mean Corpuscular HGB 32.6 pg 27.0-33.0 26 Mean Corpuscular HGB Conc 34.6 g/dL 31.7-36.0 26 Platelet Count 295 K/uL 150-400 26 Red Cell Distri Width %CV 12.9 % 11.6-15.8 26 Mean Platelet Volume 8.8 fL 6.6-10.6 26 CBS W/Automated Diff 11/27/2015 Red Cell Distri Width SD 42.6 fl 36-51 26 Neut% 78.8 % High 33.0-73.0 26 Lymph % 6.6 % Low 17.0-56.0 26 [place] % 5.8 % 0.0-10.0 26 Eo% 8.4 % High 0.0-5.0 26 Bas% 0.4 % 0.1-1.0 26 Neut# 10.95 K/uL High 1.8-7.0 26 Lymph # 0.92 K/uL Low 1.8-7.0 26 [place] # 0.81 K/uL High 0.0-0.8 26 Eos # 1.17 K/uL High 0.0-0.5 26 Baso # 0.05 K/uL Low 0.1-0.2 26 Comprehensive Metabolic Panel 11/27/2015 Glucose 140 mg/dL High 74-106 26 BUN 22 mg/dL High 7-18 26 Creatinine 1.1 mg/dL 0.6-1.3 26 Glom Filtration Rate, Estimate >60 mL/min >60 26 If >60 mL/min >60 26, 50 BUN/Creat 20.0 ratio 26 Sodium 130 mmol/L Low 136-145 26 Potassium 3.9 mmol/L 3.5-5.1 26 Chloride 98 mmol/L 98-107 26 Carbon Dioxide 23 mmol/L 21-32 26 Anion Gap 9 mEq/L 8-16 26 Calcium 8.5 mg/dL 8.5-10.1 26 Total Protein 6.6 g/dL 6.4-8.2 26 Albumin 1.7 g/dL Low 3.4-5.0 26 Globulin 4.9 g/dL High 1.9-4.3 26 Alb/Glob 0.3 ratio 26 Bilirubin,Total 0.5 mg/dL 0.2-1.0 26 Sgot/Ast 39 U/L High 15-37 26 SGPT/Alt 27 U/L 12-78 26 Alkaline Phosphatase 89 U/L 45-117 26 Is Patient Fasting? Non-Fasting 26 Magnesium 11/27/2015 Magnesium 1.9 mg/dL 1.8-2.4 26 Is Patient Fasting? Non-Fasting 26 C-Reactive Protein,Quant 11/27/2015 C-Reactive Protein,Quant 214.0 mg/L High <3.0 26 Is Patient Fasting? Non-Fasting 26 Laboratory test finding 11/26/2015 Glucose,Bedside 201 mg/dL High 70-110 26, 51 Laboratory test finding 11/26/2015 Glucose,Bedside 138 mg/dL High 70-110 26, 52 Laboratory test finding 11/26/2015 CK 20 U/L Low 39-308 26 C-Reactive Protein,Cardiac <pending> 26 Laboratory test finding 11/26/2015 NT-Probnp <pending> 26 Laboratory test finding 11/26/2015 Glucose,Bedside 183 mg/dL High 70-110 26, 53 Ast-GN67 11/26/2015 Trimethoprim/Sulfamet <=20 hoxazole Ampicillin >=32 Cefazolin <=4 Ampicillin/Sulbactam 8 Ciprofloxacin 1 Piperacillin/Tazobactam 8 Ceftazidime <=1 Ceftriaxone <=1 Cefepime <=1 Levofloxacin 1 Imipenem <=0.25 Gentamicin <=1 Tobramycin <=1 Ast-GN67 11/26/2015 Trimethoprim/Sulfamethoxazole <=20 Ampicillin >=32 Cefazolin <=4 Ampicillin/Sulbactam 8 Ciprofloxacin 1 Piperacillin/Tazobactam 8 Ceftazidime <=1 Ceftriaxone <=1 Cefepime <=1 Levofloxacin 1 Imipenem <=0.25 Gentamicin <=1 Tobramycin <=1 Laboratory test finding 11/26/2015 Glucose,Bedside 153 mg/dL High 70-110 26, 54 Laboratory test finding 11/26/2015 Glucose,Bedside 169 mg/dL High 70-110 26, 55 CBC 11/26/2015 White Blood Count 13.4 K/uL High 3.4-10.5 26 Red Blood Count 3.36 M/uL Low 4.20-5.80 26 Hemoglobin 11.0 gm/dL Low 12.8-17.0 26 Hematocrit 31.3 % Low 38.0-48.0 26 Mean Cell Volume 93.2 fl 80.0-96.0 26 Mean Corpuscular HGB 32.7 pg 27.0-33.0 26 Mean Corpuscular HGB Conc 35.1 g/dL 31.7-36.0 26 Platelet Count 250 K/uL 150-400 26 Red Cell Distri Width %CV 12.6 % 11.6-15.8 26 Mean Platelet Volume 8.7 fL 6.6-10.6 26 Basic Metabolic Panel 11/26/2015 Glucose 175 mg/dL High 74-106 26 BUN 21 mg/dL High 7-18 26 Creatinine 1.1 mg/dL 0.6-1.3 26 Glom Filtration Rate, Estimate >60 mL/min >60 26 If >60 mL/min >60 26, 56 BUN/Creat 19.0 ratio 26 Sodium 129 mmol/L Low 136-145 26 Potassium 4.1 mmol/L 3.5-5.1 26 Chloride 98 mmol/L 98-107 26 Carbon Dioxide 22 mmol/L 21-32 26 Anion Gap 9 mEq/L 8-16 26 Calcium 8.6 mg/dL 8.5-10.1 26 Is Patient Fasting? Non-Fasting 26 Magnesium 11/26/2015 Magnesium 1.5 mg/dL Low 1.8-2.4 26 Is Patient Fasting? Non-Fasting 26 Laboratory test 11/25/2015 Glucose,Bedside 219 mg/dL High 70-110 26, 57 finding Laboratory test 11/25/2015 Glucose,Bedside 166 mg/dL High 70-110 26 finding Laboratory test 11/25/2015 Glucose,Bedside 253 mg/dL High 70-110 26, 58 finding Laboratory test 11/24/2015 Legionella Negative Negative 26, 59 finding Antigen,Urine Streptococcus 11/24/2015 Specimen Source Urine . 26 Pneumoniae Ag,Ur Streptococcus Pneumoniae Ag,Ur NEGATIVE Negative 26 Body Fluid Culture, Sterile Not Indicated . 26 Organism Id Not indicated. . 26 Please Note: (SEE NOTE) 26, 60 Respiratory Culture W/Gram 11/24/2015 Gram Stain <10 SQUAMOUS EPI <SEE 26, 61 St NOTE> Gram Stain <25 WBC/LPF 26 Gram Stain FEW GRAM POSITIV <SEE NOTE> 26, 62 Gram Stain FEW GRAM NEGATIV <SEE NOTE> 26, 63 Respiratory Culture KLEBSIELLA PNEUM <SEE NOTE> 26, 64 Quantity MANY 26 Blood Culture 11/24/2015 Blood Culture Aerobic NO GROWTH: FINAL <SEE NOTE> 65, 66 Blood Culture Anaerobic NO GROWTH: FINAL <SEE NOTE> 65, 67 @[facility] Pat Id: [id number] 65 @[facility] Req #: [id number] 65 Respiratory Culture W/Gram 11/24/2015 Gram Stain >10 SQUAMOUS EPI <SEE 65, 68 St NOTE> Gram Stain <25 WBC/LPF 65 Gram Stain MODERATE GRAM NE <SEE NOTE> 65, 69 Gram Stain MODERATE GRAM PO <SEE NOTE> 65, 70 Gram Stain FEW GRAM POS BETZY <SEE NOTE> 65, 71 Respiratory Culture KLEBSIELLA PNEUM <SEE NOTE> 65, 72 Quantity MANY 65 @[facility] Pat Id: [id number] 65 @[facility] Req #: [id number] 65 Streptococcus Pneumoniae Ag,Ur 11/24/2015 Specimen Source Urine . 65 Streptococcus Pneumoniae Ag,Ur NEGATIVE Negative 65 Body Fluid Culture, Sterile Not Indicated . 65 Organism Id Not indicated. . 65 Please Note: (SEE NOTE) 65, 73 @[facility] Pat Id: [id number] 65 @[facility] Req #: [id number] 65 Legionella 11/24/2015 Legionella Negative Negative 65, 74 Antigen,Urine Antigen,Urine @[facility] Pat Id: [id number] 65 @[facility] Req #: [id number] Legionella Culture 11/24/2015 Legionella Culture Legionella Speci 65, 75 <SEE NOTE> CBS W/Automated 11/18/2015 White Blood Count 9.1 K/uL 3.4-10.5 76 Diff Red Blood Count 3.35 M/uL Low 4.20-5.80 76 Hemoglobin 11.4 gm/dL Low 12.8-17.0 76 Hematocrit 32.4 % Low 38.0-48.0 76 Mean Cell Volume 96.7 fl High 80.0-96.0 76 Mean Corpuscular HGB 34.0 pg High 27.0-33.0 76 Mean Corpuscular HGB Conc 35.2 g/dL 31.7-36.0 76 Platelet Count 154 K/uL 150-400 76 Red Cell Distri Width SD 42.6 fl 36-51 76 Red Cell Distri Width %CV 12.5 % 11.6-15.8 76 Mean Platelet Volume 9.4 fL 6.6-10.6 76 Neut% 77.1 % High 33.0-73.0 76 Lymph % 6.9 % Low 17.0-56.0 76 [place] % 8.0 % 0.0-10.0 76 Eo% 7.7 % High 0.0-5.0 76 Bas% 0.3 % 0.1-1.0 76 Neut# 6.99 K/uL 1.8-7.0 76 Lymph # 0.63 K/uL Low 1.8-7.0 76 [place] # 0.73 K/uL 0.0-0.8 76 Eos # 0.70 K/uL High 0.0-0.5 76 Baso # 0.03 K/uL Low 0.1-0.2 76 C-Reactive Protein,Quant 11/18/2015 C-Reactive Protein,Quant 265.0 mg/L High <3.0 76 Is Patient Fasting? Unknown 76 CK 11/18/2015 CK 44 U/L 39-308 76 Is Patient Fasting? Unknown 76 Comprehensive Metabolic Panel 11/18/2015 Glucose 311 mg/dL High 74-106 76 BUN 15 mg/dL 7-18 76 Creatinine 1.4 mg/dL High 0.6-1.3 76 Glom Filtration Rate, Estimate 55 mL/min >60 76 If >60 mL/min >60 76, 77 BUN/Creat 10.7 ratio 76 Sodium 129 mmol/L Low 136-145 76 Potassium 4.0 mmol/L 3.5-5.1 76 Chloride 96 mmol/L Low 98-107 76 Carbon Dioxide 25 mmol/L 21-32 76 Anion Gap 8 mEq/L 8-16 76 Calcium 8.9 mg/dL 8.5-10.1 76 Total Protein 6.9 g/dL 6.4-8.2 76 Albumin 2.6 g/dL Low 3.4-5.0 76 Globulin 4.3 g/dL 1.9-4.3 76 Alb/Glob 0.6 ratio 76 Bilirubin,Total 0.8 mg/dL 0.2-1.0 76 Sgot/Ast 15 U/L 15-37 76 SGPT/Alt 15 U/L 12-78 76 Alkaline Phosphatase 86 U/L 45-117 76 Is Patient Fasting? Unknown 76 CMP Panel (14 Test) 11/16/2015 Albumin 2.9 Low 3.4-5.0 Calcium 8.7 8.5-10.1 Carbon Dioxide 26 21-32 Chloride 97 Low 98-107 Creatinine 1.4 High 0.6-1.3 Glucose Serum 221 High 74-106 Alkaline Phosphatase 89 45-117 Potassium 3.8 3.5-5.1 Protein Total 7.8 6.4-8.2 Sodium 130 Low 136-145 Ast - Sgot 21 15-37 BUN - Urea Nitrogen 12 7-18 Laboratory test finding 11/16/2015 C-Reactive Protein 208 High <3.0 CBC W/Auto Diff & PLT 11/16/2015 White Blood Count 10.4 3.4-10.5 RBC Red Blood Count 3.59 Low 4.2-5.8 Hemoglobin 12.2 Low 12.8-17.0 Hematocrit 34.9 Low 38.0-48.0 MCV (Corpuscular Volume) 97.2 High 80.0-96 MCH (Corpuscular Hemoglobin) 34 High 27-33 MCHC (Corpuscular Hemog Conc) 35 31.7-36 Platelet Count Manual 142 Low 150-400 MPV 9.1 6.6-10.6 Neutrophils 71.1 33-73 Lymphocytes 11.5 Low 17-56 Monocytes 10.9 High 0-10 Eosinophils Fluid 5.8 High 0-5 Basophils .7 .1-1 Ua Complete W/ Micro 11/16/2015 Ua Appera clear Ua Bilirubin neg Ua Blood neg Ua Color yellow Ua Glucose 100 High neg Ua Ketones neg Ua Leuko neg Ua Nitrite neg Ua PH 6.0 Low 6.5-7.5 Ua Protein 30 High neg Ua Specific [place] 1.015 1.010-1.030 Ua Urobilinogen .2 .2-1.0 CK 11/16/2015 CK 123 U/L 39-308 76 @[facility] Req #: MARGE REQ 76 Laboratory test finding 11/14/2015 CK 344 U/L High 39-308 78, 79 Laboratory test finding 11/12/2015 CK 325 U/L High 39-308 80, 81 CBS W/Automated Diff 11/11/2015 White Blood Count 7.0 K/uL 3.4-10.5 82 Red Blood Count 3.67 M/uL Low 4.20-5.80 82 Hemoglobin 12.5 gm/dL Low 12.8-17.0 82 Hematocrit 35.9 % Low 38.0-48.0 82 Mean Cell Volume 97.8 fl High 80.0-96.0 82 Mean Corpuscular HGB 34.1 pg High 27.0-33.0 82 Mean Corpuscular HGB Conc 34.8 g/dL 31.7-36.0 82 Platelet Count 150 K/uL 150-400 82 Red Cell Distri Width SD 44.5 fl 36-51 82 Red Cell Distri Width %CV 12.8 % 11.6-15.8 82 Mean Platelet Volume 10.1 fL 6.6-10.6 82 Neut% 64.7 % 33.0-73.0 82 Lymph % 17.4 % 17.0-56.0 82 [place] % 9.8 % 0.0-10.0 82 Eo% 6.5 % High 0.0-5.0 82 Bas% 1.6 % High 0.1-1.0 82 Neut# 4.51 K/uL 1.8-7.0 82 Lymph # 1.21 K/uL Low 1.8-7.0 82 [place] # 0.68 K/uL 0.0-0.8 82 Eos # 0.45 K/uL 0.0-0.5 82 Baso # 0.11 K/uL 0.1-0.2 82 Comprehensive Metabolic Panel 11/11/2015 Glucose 186 mg/dL High 74-106 82 BUN 6 mg/dL Low 7-18 82 Creatinine 1.2 mg/dL 0.6-1.3 82 Glom Filtration Rate, Estimate >60 mL/min >60 82 If >60 mL/min >60 82, 83 BUN/Creat 5.0 ratio 82 Sodium 134 mmol/L Low 136-145 82 Potassium 4.4 mmol/L 3.5-5.1 82 Chloride 102 mmol/L 98-107 82 Carbon Dioxide 25 mmol/L 21-32 82 Anion Gap 7 mEq/L Low 8-16 82 Calcium 8.8 mg/dL 8.5-10.1 82 Total Protein 7.8 g/dL 6.4-8.2 82 Albumin 3.6 g/dL 3.4-5.0 82 Globulin 4.2 g/dL 1.9-4.3 82 Alb/Glob 0.9 ratio 82 Bilirubin,Total 0.7 mg/dL 0.2-1.0 82 Sgot/Ast 40 U/L High 15-37 82 SGPT/Alt 28 U/L 12-78 82 Alkaline Phosphatase 117 U/L 45-117 82 Is Patient Fasting? Unknown 82 CK 11/11/2015 CK 331 U/L High 39-308 82 Is Patient Fasting? Unknown 82 C-Reactive Protein,Quant 11/11/2015 C-Reactive Protein,Quant 21.7 mg/L High <3.0 82 Is Patient Fasting? Unknown 82 CBC 11/04/2015 White Blood Count 5.8 K/uL 3.4-10.5 84 Red Blood Count 3.49 M/uL Low 4.20-5.80 84 Hemoglobin 11.8 gm/dL Low 12.8-17.0 84 Hematocrit 35.3 % Low 38.0-48.0 84 Mean Cell Volume 101.1 fl High 80.0-96.0 84 Mean Corpuscular HGB 33.8 pg High 27.0-33.0 84 Mean Corpuscular HGB Conc 33.4 g/dL 31.7-36.0 84 Platelet Count 106 K/uL Low 150-400 84 Red Cell Distri Width %CV 13.2 % 11.6-15.8 84 Mean Platelet Volume 10.1 fL 6.6-10.6 84 Comprehensive Metabolic Panel 11/04/2015 Glucose 230 mg/dL High 74-106 84 BUN 8 mg/dL 7-18 84 Creatinine 1.2 mg/dL 0.6-1.3 84 Glom Filtration Rate, Estimate >60 mL/min >60 84 If >60 mL/min >60 84, 85 BUN/Creat 6.6 ratio 84 Sodium 136 mmol/L 136-145 84 Potassium 4.5 mmol/L 3.5-5.1 84 Chloride 102 mmol/L 98-107 84 Carbon Dioxide 24 mmol/L 21-32 84 Anion Gap 10 mEq/L 8-16 84 Calcium 8.7 mg/dL 8.5-10.1 84 Total Protein 7.5 g/dL 6.4-8.2 84 Albumin 3.5 g/dL 3.4-5.0 84 Globulin 4.0 g/dL 1.9-4.3 84 Alb/Glob 0.9 ratio 84 Bilirubin,Total 0.3 mg/dL 0.2-1.0 84 Sgot/Ast 48 U/L High 15-37 84 SGPT/Alt 26 U/L 12-78 84 Alkaline Phosphatase 143 U/L High 45-117 84 Is Patient Fasting? Unknown 84 CK 11/04/2015 CK 130 U/L 39-308 84 Is Patient Fasting? Unknown 84 C-Reactive Protein,Quant 11/04/2015 C-Reactive Protein,Quant 24.1 mg/L High <3.0 84 Is Patient Fasting? Unknown 84 Laboratory test 11/02/2015 CK 149 U/L 39-308 84, 86 finding Laboratory test 10/30/2015 CK 108 U/L 39-308 87, 88 finding Blood Culture 10/27/2015 Blood Culture NO GROWTH: FINAL 89, 90 Aerobic <SEE NOTE> Blood Culture Anaerobic NO GROWTH: FINAL <SEE NOTE> 89, 91 @[facility] Pat Id: [id number] 89 @[facility] Req #: [id number] 89 Blood Culture 10/27/2015 Blood Culture NO GROWTH: FINAL 89, 92 Anaerobic Anaerobic <SEE NOTE> @[facility] Pat Id: [id number] @[facility] Req #: [id number] 89 Blood Culture Aerobic 10/27/2015 Blood Culture Aerobic NO GROWTH: FINAL < SEE 89, 93 NOTE> @[facility] Pat Id: [id number] @[facility] Req #: [id number] 89 C-Reactive Protein,Quant 10/27/2015 C-Reactive Protein,Quant 16.9 mg/L High <3.0 89 @[facility] Pat Id: [id number] 89 @[facility] Req #: [id number] 89 Is Patient Fasting? Non-Fasting 89 CK 10/27/2015 CK 127 U/L 39-308 89 @[facility] Pat Id: [id number] @[facility] Req #: [id number] 89 Is Patient Fasting? Non-Fasting 89 Comprehensive Metabolic Panel 10/27/2015 Glucose 262 mg/dL High 74-106 89 BUN 8 mg/dL 7-18 89 Creatinine 1.3 mg/dL 0.6-1.3 89 Glom Filtration Rate, Estimate 59 mL/min >60 89 If >60 mL/min >60 89, 94 BUN/Creat 6.1 ratio 89 Sodium 134 mmol/L Low 136-145 89 Potassium 3.8 mmol/L 3.5-5.1 89 Chloride 101 mmol/L 98-107 89 Carbon Dioxide 27 mmol/L 21-32 89 Anion Gap 6 mEq/L Low 8-16 89 Calcium 9.0 mg/dL 8.5-10.1 89 Total Protein 7.7 g/dL 6.4-8.2 89 Albumin 3.4 g/dL 3.4-5.0 89 Globulin 4.3 g/dL 1.9-4.3 89 Alb/Glob 0.8 ratio 89 Bilirubin,Total 0.5 mg/dL 0.2-1.0 89 Sgot/Ast 65 U/L High 15-37 89 SGPT/Alt 41 U/L 12-78 89 Alkaline Phosphatase 126 U/L High 45-117 89 @[facility] Id: [id number] 89 @[facility] Re #: [id number] 89 Is Patient Fasting? Non-Fasting 89 CBS W/Automated Diff 10/27/2015 White Blood Count 5.6 K/uL 3.4-10.5 89 Red Blood Count 3.57 M/uL Low 4.20-5.80 89 Hemoglobin 12.1 gm/dL Low 12.8-17.0 89 Hematocrit 35.2 % Low 38.0-48.0 89 Mean Cell Volume 98.6 fl High 80.0-96.0 89 Mean Corpuscular HGB 33.9 pg High 27.0-33.0 89 Mean Corpuscular HGB Conc 34.4 g/dL 31.7-36.0 89 Platelet Count 118 K/uL Low 150-400 89 Red Cell Distri Width SD 44.2 fl 36-51 89 Red Cell Distri Width %CV 12.8 % 11.6-15.8 89 Mean Platelet Volume 9.3 fL 6.6-10.6 89 Neut% 62.9 % 33.0-73.0 89 Lymph % 22.0 % 17.0-56.0 89 [place] % 7.9 % 0.0-10.0 89 Eo% 6.1 % High 0.0-5.0 89 Bas% 1.1 % High 0.1-1.0 89 Neut# 3.51 K/uL 1.8-7.0 89 Lymph # 1.23 K/uL Low 1.8-7.0 89 [place] # 0.44 K/uL 0.0-0.8 89 Eos # 0.34 K/uL 0.0-0.5 89 Baso # 0.06 K/uL Low 0.1-0.2 89 @[facility] Pat Id: [id number] 89 @[facility] Req #: [id number] 89 CBC 10/23/2015 Hematocrit 35.1 % Low 41.0 - 53.0 Hemoglobin 12.1 g/dL Low 13.5 - 18.0 MCH 33.8 pg High 27.0 - 32.0 MCHC 34.4 g/dL 32.0 - 36.0 MCV 98.5 fL High 80.0 - 95.0 MPV 7.7 fL 7.1 - 10.7 Platelets 84 10*3/uL Low 150 - 450 RBC 3.57 10*6/uL Low 4.60 - 6.10 RDW 13.0 % 10.5 - 14.5 WBC 7.5 10*3/uL 4.1 - 11.0 BMP 10/23/2015 Anion Gap 11 mmol/L 7 - 16 BUN/Creatinine Ratio 9.6 Ratio Low 10.0 - 20.0 Calcium 8.2 mg/dL Low 8.4 - 10.2 Chloride 100 mmol/L 100 - 108 Co2 24 mmol/L 22 - 31 Creatinine 1.15 mg/dL 0.80 - 1.30 GFR MDRD Af Amer >60 >59 ml/min/1.73m2 GFR MDRD Non Af Amer >60 >59 ml/min/1.73m2 Glom Filt Rate, Est See Notes Glucose 172 mg/dL High 70 - 99 Potassium 3.9 mmol/L 3.6 - 5.2 Sodium 135 mmol/L Low 136 - 145 Urea nitrogen 11 mg/dL 7 - 24 Poct glucose 10/23/2015 Glucose, Poc 238 mg/dL High 70 - 99 Prepare RBC 10/22/2015 Blood Component Type [place] Red Cells Blood Component Type [place] Red Cells Blood Component Type [place] Red Cells Blood Component Type [place] Red Cells Crossmatch Compatible Crossmatch Compatible Crossmatch Compatible Crossmatch Compatible Specimen Expiration Date 10/24/2015 Testing site Performed At [address] [place] [id number] Transfusion status Ok To Transfuse Transfusion status Ok To Transfuse Transfusion status Ok To Transfuse Transfusion status Ok To Transfuse Unit Division 0 1 Unit Division 0 1 Unit Division 0 1 Unit Division 0 1 Unit Number [id number] Unit Number [id number] Unit Number [id number] Unit Number [id number] Unit status Rel From Alloc Unit status Rel From Alloc Unit status Rel From Alloc Unit status Rel From Alloc 1 SYNCOPE, NEEDING PACEMAKER 2 Note: Persistent reduction for 3 months or more in an eGFR <60 mL/min/1.73 m2 defines CKD. Patients with eGFR values >/=60 mL/min/1.73 m2 may also have CKD if evidence of persistent proteinuria is present. The original MDRD equation for estimated GFR is not valid for patients less than 18 years of age. Additional information may be found at [email or web address]. 3 SYNCOPE 4 Result confirmed by repeat analysis. 5 Note: Persistent reduction for 3 months or more in an eGFR <60 mL/min/1.73 m2 defines CKD. Patients with eGFR values >/=60 mL/min/1.73 m2 may also have CKD if evidence of persistent proteinuria is present. The original MDRD equation for estimated GFR is not valid for patients less than 18 years of age. Additional information may be found at [email or web address]. 6 Note: Persistent reduction for 3 months or more in an eGFR <60 mL/min/1.73 m2 defines CKD. Patients with eGFR values >/=60 mL/min/1.73 m2 may also have CKD if evidence of persistent proteinuria is present. The original MDRD equation for estimated GFR is not valid for patients less than 18 years of age. Additional information may be found at [email or web address]. 7 Instrument flagged sample for slide review. Less than 10% Bands seen, no other immature WBC's seen. RBC morphology essentially normal. Platelet estimate= Moderate Decrease 8 [facility] REQUESTED MR 09/29/16. 9 No Legionella species isolated. Performed at: RN - [facility] [address] [id number] Magistrate: Ashly Gaffney MD, Phone: [phone] 10 SYNCOPE 11 NO GROWTH: FINAL REPORT 12 NO GROWTH: FINAL REPORT 13 NO GROWTH: FINAL REPORT 14 NO GROWTH: FINAL REPORT 15 Presumptive negative for L. pneumophila serogroup 1 antigen in urine, suggesting no recent or current infection. Legionnaires' disease cannot be ruled out since other serogroups and species may also cause disease. Performed at: - [facility] [id number] Magistrate: Jaime Easley MD, Phone: [phone] 16 C68.6IKD 17 Note: Persistent reduction for 3 months or more in an eGFR <60 mL/min/1.73 m2 defines CKD. Patients with eGFR values >/=60 mL/min/1.73 m2 may also have CKD if evidence of persistent proteinuria is present. The original MDRD equation for estimated GFR is not valid for patients less than 18 years of age. Additional information may be found at [email or web address]. 18 B95.7 19 NO GROWTH: FINAL REPORT 20 NO GROWTH: FINAL REPORT 21 T81.4XXD T81.89D 22 [facility] FAX [phone] DR PEREYRA FAX [phone] 23 Note: Persistent reduction for 3 months or more in an eGFR <60 mL/min/1.73 m2 defines CKD. Patients with eGFR values >/=60 mL/min/1.73 m2 may also have CKD if evidence of persistent proteinuria is present. The original MDRD equation for estimated GFR is not valid for patients less than 18 years of age. Additional information may be found at [email or web address]. 24 Instrument flagged sample for slide review. Less than 10% Bands seen, no other immature WBC's seen. RBC morphology essentially normal. Platelet estimate=NORMAL 25 Note: Persistent reduction for 3 months or more in an eGFR <60 mL/min/1.73 m2 defines CKD. Patients with eGFR values >/=60 mL/min/1.73 m2 may also have CKD if evidence of persistent proteinuria is present. The original MDRD equation for estimated GFR is not valid for patients less than 18 years of age. Additional information may be found at [email or web address]. 26 HCAP 27 Note: Persistent reduction for 3 months or more in an eGFR <60 mL/min/1.73 m2 defines CKD. Patients with eGFR values >/=60 mL/min/1.73 m2 may also have CKD if evidence of persistent proteinuria is present. The original MDRD equation for estimated GFR is not valid for patients less than 18 years of age. Additional information may be found at [email or web address]. 28 Sliding Scale 29 SITTING UP IN BED 30 SITTING UP IN BED 31 Sliding Scale 32 Tests: crp Instructions: 33 Sliding Scale Charting This Result 34 Sliding Scale Charting This Result 35 Sliding Scale Charting This Result 36 NEGATIVE FOR C. DIFFICILE TOXIN A/B. CORRELATE RESULTS WITH CLINICAL CONDITION. 37 Charting This Result Sliding Scale 38 Charting This Result Sliding Scale 39 Charting This Result Sliding Scale 40 Sliding Scale 41 Note: Persistent reduction for 3 months or more in an eGFR <60 mL/min/1.73 m2 defines CKD. Patients with eGFR values >/=60 mL/min/1.73 m2 may also have CKD if evidence of persistent proteinuria is present. The original MDRD equation for estimated GFR is not valid for patients less than 18 years of age. Additional information may be found at [email or web address]. 42 Charting This Result Sliding Scale 43 Sliding Scale 44 Sliding Scale 45 Sliding Scale 46 Note: Persistent reduction for 3 months or more in an eGFR <60 mL/min/1.73 m2 defines CKD. Patients with eGFR values >/=60 mL/min/1.73 m2 may also have CKD if evidence of persistent proteinuria is present. The original MDRD equation for estimated GFR is not valid for patients less than 18 years of age. Additional information may be found at [email or web address]. 47 Charting This Result Sliding Scale 48 Charting This Result Sliding Scale 49 Charting This Result Sliding Scale 50 Note: Persistent reduction for 3 months or more in an eGFR <60 mL/min/1.73 m2 defines CKD. Patients with eGFR values >/=60 mL/min/1.73 m2 may also have CKD if evidence of persistent proteinuria is present. The original MDRD equation for estimated GFR is not valid for patients less than 18 years of age. Additional information may be found at www.[email or web address]. 51 Charting This Result Sliding Scale 52 Charting This Result 53 Charting This Result Sliding Scale 54 Charting This Result Sliding Scale 55 Charting This Result Sliding Scale 56 Note: Persistent reduction for 3 months or more in an eGFR <60 mL/min/1.73 m2 defines CKD. Patients with eGFR values >/=60 mL/min/1.73 m2 may also have CKD if evidence of persistent proteinuria is present. The original MDRD equation for estimated GFR is not valid for patients less than 18 years of age. Additional information may be found at [email or web address]. 57 Charting This Result Sliding Scale 58 Charting This Result Sliding Scale 59 Performed at: [address] [id number] Magistrate: Jaime Easley MD, Phone: [phone] 60 [employer] guidelines require a culture to be performed on CSF specimens negative by bacterial antigen testing (CAP TOM.50403). Performed at: [address] [id number] Magistrate: Jaime Easley MD, Phone: [phone] 61 <10 SQUAMOUS EPITHELIAL CELLS/LPF 62 FEW GRAM POSITIVE COCCI 63 FEW GRAM NEGATIVE BACILLI 64 KLEBSIELLA PNEUMONIAE 65 J18.9 66 NO GROWTH: FINAL REPORT 67 NO GROWTH: FINAL REPORT 68 >10 SQUAMOUS EPITHELIAL CELLS/LPF 69 MODERATE GRAM NEGATIVE BACILLI 70 MODERATE GRAM POSITIVE COCCI 71 FEW GRAM POS BACILLI SUGGESTIVE OF DIPTHEROIDS 72 KLEBSIELLA PNEUMONIAE 73 [employer] guidelines require a culture to be performed on CSF specimens negative by bacterial antigen testing (CAP TOM.26236). Performed at: [address] [id number] Magistrate: Jaime Easley MD, Phone: [phone] 74 Performed at: [address] [id number] Magistrate: Jaime Easley MD, Phone: [phone] 75 Legionella Species Culture Culture Report: No Legionella species isolated Performed at: [address] [id number] Magistrate: Ashly Gaffney MD, Phone: [phone] . 76 T81.4XXD T81.89D 77 Note: Persistent reduction for 3 months or more in an eGFR <60 mL/min/1.73 m2 defines CKD. Patients with eGFR values >/=60 mL/min/1.73 m2 may also have CKD if evidence of persistent proteinuria is present. The original MDRD equation for estimated GFR is not valid for patients less than 18 years of age. Additional information may be found at [email or web address]. 78 Z79.2 79 FAX TO [phone] 80 T81.4XXD T81.89D 81 STAT [facility] FAX [phone] DR PEREYRA FAX [phone] T81.4XXD 83 Note: Persistent reduction for 3 months or more in an eGFR <60 mL/min/1.73 m2 defines CKD. Patients with eGFR values >/=60 mL/min/1.73 m2 may also have CKD if evidence of persistent proteinuria is present. The original MDRD equation for estimated GFR is not valid for patients less than 18 years of age. Additional information may be found at www.[email or web address]. 84 T81.4XXD T81.89D 85 Note: Persistent reduction for 3 months or more in an eGFR <60 mL/min/1.73 m2 defines CKD. Patients with eGFR values >/=60 mL/min/1.73 m2 may also have CKD if evidence of persistent proteinuria is present. The original MDRD equation for estimated GFR is not valid for patients less than 18 years of age. Additional information may be found at [email or web address]. 86 [facility] FAX [phone] DR PEREYRA FAX [phone] T81.4XXD T81.89XD 88 STAT [facility] FAX [phone] DR PEREYRA FAX [phone] T82.7XXA 90 NO GROWTH: FINAL REPORT 91 NO GROWTH: FINAL REPORT 92 NO GROWTH: FINAL REPORT 93 NO GROWTH: FINAL REPORT 94 Note: Persistent reduction for 3 months or more in an eGFR <60 mL/min/1.73 m2 defines CKD. Patients with eGFR values >/=60 mL/min/1.73 m2 may also have CKD if evidence of persistent proteinuria is present. The original MDRD equation for estimated GFR is not valid for patients less than 18 years of age. Additional information may be found at [email or web address]. Procedures Date CPT Code Description Status 05/25/2017 01493 Dual Pacemaker Programming Anayisis, Review And Report Completed 03/23/2017 14450 Dual Pacemaker Programming Anayisis, Review And Report Completed 02/09/2017 72789 EKG-Tracing And Report Completed 01/26/2017 40973 Insert or replace pacemaker with electrodes, atrial & Completed ventricle 01/03/2017 06670 Implantable Loop [employer] Heart Rhythm Completed Derived Data 12/05/2016 24828 Implantable Loop [employer] Heart Rhythm Completed Derived Data 11/03/2016 15208 Implanation Of Cardiac Event Recorder Completed 09/08/2016 72821 Event Monitor Inter/Review Only Completed 12/31/2015 94580 Event Monitor Inter/Review Only Completed 11/27/2015 96343 Doppler ECHO Color Flow Mapping Completed 11/27/2015 26365 Doppler Echocardiogram Complete Completed 11/27/2015 78193 Transesophageal Echocardiogram Completed 11/26/2015 97555 Echocardiogram Complete Completed 09/24/2015 59886 Dual Pacemaker Programming Anayisis, Review And Report Completed 09/24/2015 80794 Dual Pacemaker Programming Anayisis, Review And Report Completed 08/11/2015 80586 Echocardiogram Complete Completed 08/06/2015 84244 EKG-Tracing And Report Completed 08/06/2015 90465 Dual Pacemaker Programming Anayisis, Review And Report Completed 08/06/2015 21209 Dual Pacemaker Programming Anayisis, Review And Report Completed 06/25/2015 81254 Dual Pacemaker Programming Anayisis, Review And Report Completed 06/25/2015 69692 Dual Pacemaker Programming Anayisis, Review And Report Completed 05/28/2015 79525 Dual Pacemaker Programming Anayisis, Review And Report Completed 05/28/2015 36339 Dual Pacemaker Programming Anayisis, Review And Report Completed 04/23/2015 21121 Dual Pacemaker Programming Anayisis, Review And Report Completed 04/23/2015 41032 Dual Pacemaker Programming Anayisis, Review And Report Completed 02/26/2015 56075 Dual Pacemaker Programming Anayisis, Review And Report Completed 02/26/2015 82608 Dual Pacemaker Programming Anayisis, Review And Report Completed 10/23/2014 68126 Dual Pacemaker Programming Anayisis, Review And Report Completed 10/23/2014 51051 Dual Pacemaker Programming Anayisis, Review And Report Completed 09/18/2014 53412 EKG-Tracing And Report Completed 05/22/2014 83915 Dual Pacemaker Programming Anayisis, Review And Report Completed 05/22/2014 37205 Dual Pacemaker Programming Anayisis, Review And Report Completed 11/22/2013 01584 Dual Pacemaker Programming Anayisis, Review And Report Completed 11/22/2013 45441 Dual Pacemaker Programming Anayisis, Review And Report Completed 07/26/2013 44355 Dual Pacemaker Programming Anayisis, Review And Report Completed 07/26/2013 90886 Dual Pacemaker Programming Anayisis, Review And Report Completed 03/29/2013 46878 Dual Pacemaker Programming Anayisis, Review And Report Completed 03/29/2013 35127 Dual Pacemaker Programming Anayisis, Review And Report Completed 11/23/2012 87596 Dual Pacemaker Programming Anayisis, Review And Report Completed 11/23/2012 44306 Dual Pacemaker Programming Anayisis, Review And Report Completed 08/27/2012 19416 EKG-Tracing And Report Completed 07/27/2012 18402 Dual Pacemaker Programming Anayisis, Review And Report Completed 07/27/2012 59884 Dual Pacemaker Programming Anayisis, Review And Report Completed 03/23/2012 22297 Dual Pacemaker Programming Anayisis, Review And Report Completed 12/16/2011 77821 Dual Pacemaker Programming Anayisis, Review And Report Completed 12/16/2011 06409 Dual Pacemaker Programming Anayisis, Review And Report Completed 09/15/2011 37200 Echocardiogram Complete Completed 09/07/2011 17516 EKG-Tracing And Report Completed 08/26/2011 05729 Dual Pacemaker Programming Anayisis, Review And Report Completed 08/26/2011 94055 Dual Pacemaker Programming Anayisis, Review And Report Completed 04/29/2011 80113 Dual Pacemaker Programming Anayisis, Review And Report Completed 04/29/2011 71306 Dual Pacemaker Programming Anayisis, Review And Report Completed 01/14/2011 20814 Dual Pacemaker Programming Anayisis, Review And Report Completed 09/30/2010 05950 Transtelephonic Pacemaker Eval Completed 09/30/2010 55178 Transtelephonic Pacemaker Eval Completed 08/10/2010 47271 EKG-Tracing And Report Completed 08/10/2010 62019 EKG-Tracing And Report Completed 06/25/2010 44869 Pacemaker Interrogaton Eval In Person Completed 03/30/2010 53566 Transtelephonic Pacemaker Eval Completed 03/30/2010 12991 Transtelephonic Pacemaker Eval Completed 12/25/2009 51692 Pacemaker Interrogaton Eval In Person Completed 09/22/2009 48415 Transtelephonic Pacemaker Eval Completed 09/22/2009 61580 Transtelephonic Pacemaker Eval Completed 07/30/2009 23245 EKG-Tracing And Report Completed 06/11/2009 63566 Transtelephonic Pacemaker Eval Completed 06/11/2009 86935 Transtelephonic Pacemaker Eval Completed 02/27/2009 84073 Dual Pacemaker Programming Anayisis, Review And Report Completed 11/04/2008 64645 Pacemaker Interrogaton Eval In Person Completed 10/09/2008 36422 Echocardiogram Complete Completed 10/08/2008 59993 EKG-Tracing And Report Completed 07/29/2008 85779 Transtelephonic Pacemaker Eval Completed 05/06/2008 02826 Transtelephonic Pacemaker Eval Completed 02/01/2008 40552 Dualchamber Pacemaker Telephonic Completed Encounters Type Date Location Provider CPT E/M Dx Office Visit 08/07/2017 10:40a Cardiology Office Heather Gomez, 51245 R55 MSN, [facility] R00.1 I10 Z95.0 Office Visit 02/09/2017 10:00a Cardiology Office Daniel Nelson M.D., 08581 R55 FAC R00.1 Z95.9 I10 E11.9 Office Visit 02/08/2017 1:30p Surgical Office Kaden Hogan, 93184 R55 Guille R55 Office Visit 10/21/2016 8:40a Cardiology Office Daniel Nelson M.D., 94827 R55 FAC I49.5 Office Visit 09/07/2016 1:49p [facility] Daniel Nelson, 05827 R55 [facility], FACC Office Visit 08/12/2016 8:40a Cardiology Office Daniel Nelson, 68611 I49.5 MBrianDBrian, [facility] I10 E11.9 Office Visit 01/28/2016 10:20a Cardiology Office Heather Tony Gomez, 75446 I49.5 MSN, [facility] E78.5 I10 Office Visit 01/18/2016 2:15p Physical Medicine & Valery Flores M.D. 91319 T82.7xxD Infectious Disease J18.9 B95.7 Office Visit 12/24/2015 11:20a Cardiology Office Daniel Nelson, 10191 T82.7xxD Guille, FACC J18.9 R06.02 I49.5 Office Visit 12/21/2015 3:30p Physical Medicine Nicky Flores M.D. 41515 B95.7 Infectious Disease T82.7xxD J18.9 Office Visit 11/24/2015 11:00a Physical Medicine & Valery Flores M.D. 58058 J18.9 Infectious Disease R06.02 B95.7 T82.7xxD Office Visit 11/10/2015 10:00a Physical Medicine & Valery Flores M.D. 42991 T82.7xxA Infectious Disease B95.7 F10.20 R19.7 Z23 Office Visit 10/28/2015 12:00p Physical Josy Flores M.D. 49150 T82.7xxA Infectious Disease B95.7 Office Visit 09/24/2015 10:15a Cardiology Office Heather Gomez, 63286 Z95.0 MSN, [facility] I48.0 I49.5 E78.5 I10 Office Visit 08/06/2015 9:40a Cardiology Office Heather Gomez, 20695 Z95.0 MSN, [facility] I49.5 E78.5 I10 Office Visit 09/18/2014 9:50a Cardiology Office Daniel Nelson, 24242 427.81 M.D., FACC V45.01 Office Visit 09/04/2013 10:30a Cardiology Office Daniel Nelson, 53420 427.81 M.DBrian, FACC 272.4 401.1 Office Visit 08/27/2012 8:30a Cardiology Office Daniel Nelson, 81997 427.81 M.D., FACC V45.01 272.4 250.00 Office Visit 09/07/2011 11:00a Cardiology Office Daniel Nelson, 56797 427.81 M.DBrian, FACC V45.01 794.31 Office Visit 08/10/2010 8:40a Cardiology Office Heather Gomez, 11871 427.81 MSN, [facility] 401.1 272.4 250.00 Office Visit 07/30/2009 2:00p Cardiology Office Daniel Nelson, 37290 427.81 M.Jl., [facility] 401.1 272.4 250.02 V72.81 Office Visit 12/03/2007 8:30a [place] [address] 354.0 719.44 Office Visit 09/24/2007 1:15p [place] [address] 719.44 354.0 Office Visit 08/14/2007 12:00p [place] [address] 719.44 354.0 Plan of Care Future Appointment(s):11/29/2017 8:10 am - TTM Check at Cardiology [id number] - Heather Gomez, MSN, [id number] Syncope and collapseComments: ToxpjiyO38.1 Bradycardia, unspecifiedComments:Monitor.I10 Essential (primary) hypertensionComments:No changes.Z95.0 Presence of cardiac pacemakerComments: Will follow in our pacer clinic, per protocol.AllFollow up:Follow up visit in one year.
[2017-09-02 17:30] VITALS: BP 160/86
[2017-09-02] MEDS ORDERED: Albuterol 2.5 MG/3 ML NEB.SOL* (0.083%) INH ONE (18:08)
--- NOTE | 2017-09-02 18:09 | UC ---
General HPI - HPI Summary HPI Summary: Patient states "I'm worried about pneumonia". He goes on to describe this as a combination of cough and feeling like he has some fluid in his lungs. At the onset he noted some chills. This began 3 days ago. He does admit that he is feeling improved ;however, he wants to ensure it is not pneumonia. He denies any short of breath, wheezing and again no fever. He denies any associated chest pain. He is diabetic and notes that his blood sugars are good between 80 and 90. States that he does have a history of COPD but requires no treatment for that. - History of Current Complaint Chief Complaint: UCGeneralIllness Stated Complaint: CHEST CONGESTION/UPPER RESP Time Seen by Provider: 09/02/17 17:59 Hx Obtained From: Patient Onset/Duration: Gradual Onset Pain Intensity: 1 Associated Signs & Symptoms: Positive: Cough. Negative: Chest Pain, Fever - Allergy/Home Medications Allergies/Adverse Reactions: Allergies Allergy/AdvReac Type Severity Reaction Status Date / Time No Known Allergies Allergy Verified 09/02/17 17:23 Home Medications: Home Medications glipiZIDE [Glipizide] 5 mg PO DAILY 09/02/17 [History Confirmed 09/02/17] PMH/Surg Hx/FS Hx/Imm Hx - Additional Past Medical History Additional PMH: gout Endocrine History: Diabetes Cardiovascular History: Hypertension, Pacemaker/ICD Respiratory History: COPD, Pneumonia - Surgical History Surgical History: Yes Surgery Procedure, Year, and Place: Pacemaker 1996; then in 2003 [facility], 08/20/15 at [facility]. - Family History Known Family History: Positive: None - Social History Occupation: Employed Full-time Alcohol Use: Daily Substance Use Type: None Smoking Status (MU): Former Smoker Length of Time of Smoking/Using Tobacco: 30 years When Did the Patient Quit Smoking/Using Tobacco: 1999 - Immunization History Vaccination Up to Date: Yes Review of Systems Constitutional: Chills Skin: Negative Eyes: Negative ENT: Negative Respiratory: Cough Cardiovascular: Negative Gastrointestinal: Negative Genitourinary: Negative Motor: Negative Neurovascular: Negative Musculoskeletal: Negative Neurological: Negative Psychological: Negative All Other Systems Reviewed And Are Negative: Yes Physical Exam Triage Information Reviewed: Yes Appearance: Well-Appearing Vital Signs: Initial Vital Signs Temp 98.8 F 09/02/17 17:26 Pulse 78 09/02/17 17:26 Resp 19 09/02/17 17:26 BP 160/86 09/02/17 17:26 Pulse Ox 98 09/02/17 17:26 Vital Signs Reviewed: Yes Eyes: Positive: Conjunctiva Clear ENT: Positive: Pharynx normal, TMs normal. Negative: Nasal congestion, Nasal drainage Neck: Positive: Supple, Nontender, No Lymphadenopathy, Other: - No JVD Respiratory: Positive: Lungs clear, No respiratory distress, Decreased breath sounds - bases. Negative: Crackles, Rhonchi, Wheezing Cardiovascular: Positive: RRR, No Murmur, Pulses Normal Abdomen Description: Positive: Nontender, No Organomegaly, Soft Bowel Sounds: Positive: Present Musculoskeletal: Positive: ROM Intact, No Edema Neurological: Positive: Alert Psychological: Positive: Age Appropriate Behavior Skin Exam: Normal Diagnostics - Radiology No standard instances Radiology Interpretation Completed By: Radiologist - Attending Doctor: Nela Mcneil ([id number]) Spinner Cap Frame: Jean Claude Vital ([id number]) Gas Utility Worker: BHARAT (NUANCE) Report Date: 09/02/2017 18:07:00 Report Status: Final Begin of Report Content Patient Name: ALTHEA MCCORMACK Medical Record#: [id number] Ordering Physician: Katie DECKER Acct.#: [id number] : 1955 Age: 62 Sex: M Location: [facility] Exam Date: 09/02/171806 ADM Status: REG ER Order Information: CHEST PA LAT 2 S Accession Number: [id number] CPT: 42255 INDICATION: 3 days cough. History of pneumonia. History of COPD. Former tobacco use. COMPARISON: July 25, 2014 CT TECHNIQUE: Dual energy PA and routine lateral views of the chest were obtained. REPORT: Elevated lung volumes with increased AP thoracic diameter. Minimal prominence of the interstitial markings and patchy rarefaction. No focal pulmonary lesion, compelling alveolar consolidation, pleural effusion, pneumothorax. Negative for cardiomegaly. RIGHT atrial and RIGHT ventricular level pacemaker leads. Implanted cardiac loop recorder. Unremarkable central pulmonary vasculature and mediastinal contours. IMPRESSION: #. Stigmata of obstructive lung disease. No acute pulmonary or cardiac process evident. <Electronically signed by Jean Claude Vital MD in OV> 09/02/171823 Dictated By: Jean Claude Vital MD Dictated Date/Time: 09/02/171823 Transcribed Date/Time: 09/02/171821 Copy to: CC:Nela Mcneil MD; Katie DECKER; Arpan Scott DO Imaging - [facility] Imaging - [place] [facility] Imaging - [facility] [address] [place] [address] [address] [address] ph ([phone]) ph ([phone]) ph ([phone]) End of Report Content Course/Dx - Course Course Of Treatment: NON TOXIC, NOT HYPOXIC. NO PNEUMONIA. IMPROVED AERATION POST NEB PLUS PT FEELING IMPROVED. WILL TX WITH ALBUTEROL MDI. NO CONCERN FOR CARDIAC ISSUE. BP ELEVATED HERE. HAS HX HTN THAT IS TX'ED PLUS IS ILL. WILL HAVE BP RECHECK ON F/U VISIT . - Differential Dx - Multi-Symptom Provider Diagnoses: COUGH Discharge - Sign-Out/Discharge Documenting (check all that apply): Patient Departure - Discharge Plan Condition: Improved Disposition: HOME Prescriptions: Albuterol HFA INHALER* [Ventolin HFA Inhaler*] 2 puff INH Q6H #1 mdi Patient Education Materials: COPD (Chronic Obstructive Pulmonary Disease) (ED) Referrals: Arpan Scott DO [Primary Care Provider] - 5 Days - Billing Disposition and Condition Condition: IMPROVED Disposition: Home
--- NOTE | 2017-09-02 18:27 | RAD ---
INDICATION: 3 days cough. History of pneumonia. History of COPD. Former tobacco use. COMPARISON: July 25, 2014 CT TECHNIQUE: Dual energy PA and routine lateral views of the chest were obtained. REPORT: Elevated lung volumes with increased AP thoracic diameter. Minimal prominence of the interstitial markings and patchy rarefaction. No focal pulmonary lesion, compelling alveolar consolidation, pleural effusion, pneumothorax. Negative for cardiomegaly. RIGHT atrial and RIGHT ventricular level pacemaker leads. Implanted cardiac loop recorder. Unremarkable central pulmonary vasculature and mediastinal contours. IMPRESSION: #. Stigmata of obstructive lung disease. No acute pulmonary or cardiac process evident.
== END 2017-09-02 18:57 | disposition home or self-care (01) ==
LOC: UCCORT 15:36
DX: R05 Cough (principal); E11.9 Type 2 diabetes mellitus without complications; Z79.84 Long term (current) use of oral hypoglycemic drugs; Z87.891 Personal history of nicotine dependence
CPT/HCPCS: 71046; 99212; G0463